=== PATIENT | male | born 1950 | race Caucasian/White ===

== ENCOUNTER 2022-08-20 20:50 | Emergency (ER) | payer MEDICARE ==
[~2022-08-20] VITALS: Ht 177.8 cm; Wt 102.3 kg
[~2022-08-20 20:50] MED LIST: DICL75TA5 PO; DULO20CA18 PO; HYDR-4353 PO; LISI20TA28 PO; OMEP40CA21 PO; SIMV-342 PO
[2022-08-20] MEDS ORDERED: normal saline 1000ML IV soln IVB ONE (21:25)
[2022-08-20 22:01] LABS: BASOPHILS # (AUTO) 0.1 X10'3 (0-0.2); BASOPHILS % (AUTO) 0.5 % (0-1); EOSINOPHILS % (AUTO) 0.2 % (0-6); HEMATOCRIT 56.4 % (42.0-52.0); LYMPHOCYTES # (AUTO) 1.4 X10'3 (1.1-4.8); LYMPHOCYTES % (AUTO) 7.8 % (21-51); MEAN CORPUSCULAR HEMOGLOBIN 36.2 PG (27.0-31.0); MEAN CORPUSCULAR HGB CONC 34.2 g/dL (33.0-36.5); MEAN PLATELET VOLUME 6.4 FL (7.4-10.4); MONOCYTES # (AUTO) 0.9 X10'3 (0-0.9); MONOCYTES % (AUTO) 4.8 % (2-12); NEUTROPHILS % (AUTO) 86.7 % (42-75); PLATELET COUNT 223 X10'3 (140-440); RED BLOOD COUNT 5.32 X10'6 (4.70-6.10); WHITE BLOOD COUNT 18.4 X10'3 (4.5-11.0)
[2022-08-20 22:07] LABS: HEMOGLOBIN 19.3 g/dl (14.0-17.9)
[2022-08-20 22:13] LABS: ALANINE AMINOTRANSFERASE 70 U/L (12-78); ALBUMIN 3.5 G/DL (3.4-5.0); ALKALINE PHOSPHATASE 70 IU/L (46-116); ANION GAP 20 (8-16); ASPARTATE AMINO TRANSFERASE 92 U/L (10-37); BLOOD UREA NITROGEN 11 MG/DL (7-18); BUN/CREATININE RATIO 9.3 (5.4-32.0); CALCIUM 9.3 MG/DL (8.5-10.1); CHLORIDE 101 MMOL/L (99-107); CREATININE 1.18 MG/DL (0.60-1.10); GLUCOSE 168 MG/DL (70-104); POTASSIUM 3.8 MMOL/L (3.5-5.1); SODIUM 139 MMOL/L (135-145); TOTAL CARBON DIOXIDE 17.7 MMOL/L (24-32); TOTAL PROTEIN 7.1 G/DL (6.4-8.2); eGFR 61 ML/MIN
[2022-08-20 22:21] LABS: LIPASE 58 U/L (73-393); MAGNESIUM 1.8 MG/DL (1.5-2.4)
[2022-08-20] MEDS ORDERED: normal saline 1000ml 1,000 ML IV ONE ×2 (22:50)
[2022-08-20] MEDS ORDERED: ondansetron/PF 4mg/2ml inj IV ONE (22:50)
[2022-08-21] MEDS ORDERED: proCHLORperazine 10 MG/2 ml inj IV ONE (00:05)
[2022-08-21] MEDS ORDERED: famotidine/PF 10 mg/ml inj IV ONE (00:45)
[2022-08-21 01:05] LABS: CREATINE KINASE 61 U/L (39-308)
[2022-08-21 03:04] LABS: BASOPHILS % (AUTO) 0.3 % (0-1); EOSINOPHILS % (AUTO) 0 % (0-6); HEMATOCRIT 52.3 % (42.0-52.0); HEMOGLOBIN 17.6 g/dl (14.0-17.9); LYMPHOCYTES # (AUTO) 0.9 X10'3 (1.1-4.8); LYMPHOCYTES % (AUTO) 6.7 % (21-51); MEAN CORPUSCULAR HEMOGLOBIN 35.8 PG (27.0-31.0); MEAN CORPUSCULAR HGB CONC 33.6 g/dL (33.0-36.5); MEAN CORPUSCULAR VOLUME 106.6 FL (78-98); MEAN PLATELET VOLUME 6.8 FL (7.4-10.4); MONOCYTES # (AUTO) 0.6 X10'3 (0-0.9); MONOCYTES % (AUTO) 4.3 % (2-12); NEUTROPHILS # (AUTO) 11.8 X10'3 (1.8-7.7); NEUTROPHILS % (AUTO) 88.7 % (42-75); PLATELET COUNT 234 X10'3 (140-440); RED BLOOD COUNT 4.91 X10'6 (4.70-6.10); RED CELL DISTRIBUTION WIDTH 14.1 % (11.5-14.5); WHITE BLOOD COUNT 13.3 X10'3 (4.5-11.0)
[2022-08-21 03:15] LABS: ALANINE AMINOTRANSFERASE 67 U/L (12-78); ALBUMIN 3.4 G/DL (3.4-5.0); ALKALINE PHOSPHATASE 65 IU/L (46-116); ANION GAP 13 (8-16); ASPARTATE AMINO TRANSFERASE 81 U/L (10-37); BILIRUBIN,TOTAL 0.8 MG/DL (0.1-1.0); BLOOD UREA NITROGEN 13 MG/DL (7-18); BUN/CREATININE RATIO 10.2 (5.4-32.0); CALCIUM 8.6 MG/DL (8.5-10.1); CHLORIDE 101 MMOL/L (99-107); CREATININE 1.27 MG/DL (0.60-1.10); GLUCOSE 194 MG/DL (70-104); POTASSIUM 4.9 MMOL/L (3.5-5.1); SODIUM 138 MMOL/L (135-145); TOTAL CARBON DIOXIDE 23.9 MMOL/L (24-32); TOTAL PROTEIN 6.8 G/DL (6.4-8.2); eGFR 56 ML/MIN
[2022-08-21 03:20] LABS: ETHANOL < 0.010 GM/DL (0.0-0.010)
[2022-08-21] MEDS ORDERED: ONDA8TAB13 PO (03:49)
[2022-08-21 06:37] VITALS: BP 133/86
== END 2022-08-21 03:58 | disposition home or self-care (01) ==
LOC: ER 20:51
DX: K29.20 Alcoholic gastritis without bleeding (principal); R55 Syncope and collapse; Z79.899 Other long term (current) drug therapy
CPT/HCPCS: 36415; 70450; 71045; 74176; 80053; 80320; 82550; 83690; 83735; 83880; 84145; 84484; 85025; 93005; 96361; 96374; 96375; 99285; J0780; J2405; J3490; J7030

== ENCOUNTER 2023-06-20 15:20 | Emergency (ER) | payer MEDICARE ==
[~2023-06-20] VITALS: Ht 177.8 cm; Wt 97.7 kg
[~2023-06-20 15:20] MED LIST changes: +ONDA8TAB13 PO
[2023-06-20 15:21] VITALS: BP 118/73; PULSE 121; RESP 16; TEMP 98.6; O2SAT 98
[2023-06-20 15:56] LABS: BILIRUBIN,URINE MODERATE (Neg); CLARITY,URINE CLEAR (Clear); COLOR,URINE YELLOW (Yellow); GLUCOSE, URINE NEGATIVE (Neg); KETONES,URINE 40 mg/dl (Neg); LEUKOCYTE ESTERASE ,URINE NEGATIVE (Neg); NITRITES, URINE NEGATIVE (Neg); OCCULT BLOOD,URINE NEGATIVE (Neg); PROTEIN,URINE TRACE mg/dl (Neg)
[2023-06-20 16:05] LABS: UA COLLECTION TYPE CLN CATCH MIDSTREAM
[2023-06-20 16:06] LABS: BACTERIA,URINE FEW /HPF (Neg); RBC,URINE NONE SEEN /HPF (0-2); WBC,URINE 0-4 /HPF (0-4)
[2023-06-20 16:09] LABS: MUCUS STRANDS FEW /LPF (Neg); SQUAMOUS EPITHELIAL CELL,UR MANY /LPF (FEW); TRANSITIONAL EPI CELLS,URINE FEW /HPF
[2023-06-20 16:41] LABS: BASOPHILS % (AUTO) 0.3 % (0-1); EOSINOPHILS # (AUTO) 0.1 X10'3 (0-0.9); EOSINOPHILS % (AUTO) 0.6 % (0-6); HEMATOCRIT 40.8 % (42.0-52.0); HEMOGLOBIN 13.7 g/dl (14.0-17.9); LYMPHOCYTES # (AUTO) 1.4 X10'3 (1.1-4.8); MEAN CORPUSCULAR HEMOGLOBIN 34.9 PG (27.0-31.0); MEAN CORPUSCULAR HGB CONC 33.5 g/dL (33.0-36.5); MEAN CORPUSCULAR VOLUME 104.2 FL (78-98); MEAN PLATELET VOLUME 6.9 FL (7.4-10.4); MONOCYTES # (AUTO) 0.8 X10'3 (0-0.9); MONOCYTES % (AUTO) 7.5 % (2-12); NEUTROPHILS # (AUTO) 8.9 X10'3 (1.8-7.7); NEUTROPHILS % (AUTO) 79.6 % (42-75); PLATELET COUNT 230 X10'3 (140-440); RED BLOOD COUNT 3.91 X10'6 (4.70-6.10); RED CELL DISTRIBUTION WIDTH 15.2 % (11.5-14.5); WHITE BLOOD COUNT 11.2 X10'3 (4.5-11.0)
[2023-06-20 16:52] LABS: ALANINE AMINOTRANSFERASE 95 U/L (12-78); ALBUMIN 3.6 G/DL (3.4-5.0); ALBUMIN/GLOBULIN RATIO 0.8 (1.1-1.5); ALKALINE PHOSPHATASE 168 IU/L (46-116); ANION GAP 12 (8-16); ASPARTATE AMINO TRANSFERASE 252 U/L (10-37); BILIRUBIN,TOTAL 1.8 MG/DL (0.1-1.0); BLOOD UREA NITROGEN 18 MG/DL (7-18); BUN/CREATININE RATIO 13.4 (10.0-20.0); CHLORIDE 93 MMOL/L (99-107); CREATININE 1.34 MG/DL (0.60-1.10); GLUCOSE 145 MG/DL (70-104); LIPASE 83 U/L (73-393); POTASSIUM 3.4 MMOL/L (3.5-5.1); SODIUM 132 MMOL/L (135-145); TOTAL CARBON DIOXIDE 26.7 MMOL/L (24-32); TOTAL PROTEIN 8.3 G/DL (6.4-8.2); eCRCL 51 ML/MIN; eGFR 52 ML/MIN
[2023-06-20 16:57] LABS: CALCIUM 9.5 MG/DL (8.5-10.1)
== END 2023-06-20 18:35 | disposition left against medical advice (07) ==
LOC: ER 15:21
DX: M54.50 Low back pain, unspecified (principal); R50.9 Fever, unspecified; Z53.21 Procedure and treatment not carried out due to patient leaving prior to being seen by health care provider
CPT/HCPCS: 36415; 80053; 81001; 83690; 85025; 99281

== ENCOUNTER 2023-06-24 04:30 | Inpatient (IN) | payer MEDICARE ==
[~2023-06-24] VITALS: Ht 177.8 cm; Wt 101.8 kg
[2023-06-24 05:46] LABS: BASOPHILS % (AUTO) 0.3 % (0-1); EOSINOPHILS % (AUTO) 0.2 % (0-6); HEMATOCRIT 39.5 % (42.0-52.0); HEMOGLOBIN 13.5 g/dl (14.0-17.9); LYMPHOCYTES # (AUTO) 0.4 X10'3 (1.1-4.8); LYMPHOCYTES % (AUTO) 3.7 % (21-51); MEAN CORPUSCULAR HEMOGLOBIN 35.1 PG (27.0-31.0); MEAN CORPUSCULAR HGB CONC 34.3 g/dL (33.0-36.5); MEAN CORPUSCULAR VOLUME 102.3 FL (78-98); MEAN PLATELET VOLUME 6.4 FL (7.4-10.4); MONOCYTES # (AUTO) 0.6 X10'3 (0-0.9); MONOCYTES % (AUTO) 5.4 % (2-12); NEUTROPHILS # (AUTO) 9.6 X10'3 (1.8-7.7); NEUTROPHILS % (AUTO) 90.4 % (42-75); PLATELET COUNT 215 X10'3 (140-440); RED BLOOD COUNT 3.86 X10'6 (4.70-6.10); RED CELL DISTRIBUTION WIDTH 14.3 % (11.5-14.5); WHITE BLOOD COUNT 10.6 X10'3 (4.5-11.0)
[2023-06-24 06:05] LABS: ALANINE AMINOTRANSFERASE 63 U/L (12-78); ALBUMIN 3.1 G/DL (3.4-5.0); ALBUMIN/GLOBULIN RATIO 0.7 (1.1-1.5); ALKALINE PHOSPHATASE 137 IU/L (46-116); ANION GAP 14 (8-16); ASPARTATE AMINO TRANSFERASE 104 U/L (10-37); BLOOD UREA NITROGEN 16 MG/DL (7-18); BUN/CREATININE RATIO 15.1 (10.0-20.0); CALCIUM 9.6 MG/DL (8.5-10.1); CHLORIDE 94 MMOL/L (99-107); CREATININE 1.06 MG/DL (0.60-1.10); GLUCOSE 225 MG/DL (70-104); SODIUM 133 MMOL/L (135-145); TOTAL CARBON DIOXIDE 25.4 MMOL/L (24-32); TOTAL PROTEIN 7.7 G/DL (6.4-8.2); eCRCL 64 ML/MIN; eGFR 68 ML/MIN
[2023-06-24] MEDS ORDERED: normal saline 1000ML IV soln IVB ONE ×3 (06:15→06:25)
[2023-06-24] MEDS ORDERED: ondansetron/PF 4mg/2ml inj IV ONE (06:20)
[2023-06-24] MEDS ORDERED: CefTRIAXone 2gm/D5W 50ml BAG 50 ML IV ONE (06:20)
[2023-06-24] MEDS ORDERED: morphine 4 MG/ML inj SYRINge IV ONE (06:20)
[2023-06-24] MEDS ORDERED: potassium Cl 40MEQ/1/2NS 520ml 520 ML IV ONE (06:25)
[2023-06-24] MEDS ORDERED: acetaminophen 1,000mg/100ml IV 100 ML IV STA (07:12)
[2023-06-24 07:32] LABS: MAGNESIUM 1.6 MG/DL (1.5-2.4)
[2023-06-24 08:57] LABS: BILIRUBIN,URINE MODERATE (Neg); CLARITY,URINE CLOUDY (Clear); GLUCOSE, URINE 100 mg/dl (Neg); KETONES,URINE 40 mg/dl (Neg); LEUKOCYTE ESTERASE ,URINE TRACE (Neg); OCCULT BLOOD,URINE LARGE (Neg); PH,URINE 6.5 (4.8-8.0); PROTEIN,URINE 100 mg/dl (Neg)
[2023-06-24 09:09] LABS: UA COLLECTION TYPE CLN CATCH MIDSTREAM
[2023-06-24 09:14] LABS: COLOR,URINE AMBER (Yellow); NITRITES, URINE NEGATIVE (Neg)
[2023-06-24 09:28] LABS: BACTERIA,URINE FEW /HPF (Neg); RBC,URINE TNTC /HPF (0-2); SQUAMOUS EPITHELIAL CELL,UR FEW /LPF (FEW)
[2023-06-24 09:29] LABS: HYALINE CASTS 0-3 /LPF (NEGATIVE); MUCUS STRANDS MODERATE /LPF (Neg)
--- NOTE | 2023-06-24 09:32 | NUR ---
Per primary RN Scarlet Montiel, patient accidentally discontinued IV himself. New IV placed, patient tolerated well.
[2023-06-24 10:00] LABS: PLATELET ESTIMATE NORMAL; TOTAL CELLS COUNTED 100
[2023-06-24 10:01] LABS: TOXIC GRANULATION 1+
[2023-06-24] MEDS ORDERED: potassium Cl 20 mEq SR tablet PO PRN (13:00)
[2023-06-24] MEDS ORDERED: magnesium 2GM in 50ml NS 50 ML IV PRN (13:00)
[2023-06-24] MEDS ORDERED: HYDROmorphone inj. 0.5 MG/0.5 ML DISP.SYRIN IV PRN (13:00)
[2023-06-24] MEDS ORDERED: LORazepam 2 mg/ml vial IV PRN ×2 (13:00)
[2023-06-24] MEDS ORDERED: HYDROmorphone/PF 0.2 MG/ML SYRINGE IV PRN (13:00)
[2023-06-24] MEDS ORDERED: DEXTROSE 15 GM of carb/4 tabs (each vial/BOTTLE has 4 tablets) PO PRN ×2 (13:00)
[2023-06-24] MEDS ORDERED: insulin Lispro (HumaLOG) vial - multi-dose SQ SCH (13:00)
[2023-06-24] MEDS ORDERED: dextrose 50%-water 50ml dispensing syringe IV PRN ×2 (13:00)
[2023-06-24] MEDS ORDERED: magnesium 4gm in 100ml NS 100 ML IV PRN (13:00)
[2023-06-24] MEDS ORDERED: vancomycin inj 1,000 MG in normal saline 250ml IV soln 250 ML IV SCH (13:00)
[2023-06-24] MEDS ORDERED: ondansetron/PF 4mg/2ml inj IV PRN (13:00)
[2023-06-24] MEDS ORDERED: MESSAGE TO PHARMACY PO ONE (13:00)
[2023-06-24] MEDS ORDERED: mag hydrox/Alum hydrox/simeth 30ml oral suspension PO PRN (13:00)
[2023-06-24] MEDS ORDERED: potassium Cl 40MEQ/1/2NS 520ml 520 ML IV PRN (13:00)
[2023-06-24] MEDS ORDERED: glucagon, human recombinant 1mg kit SUBCUT PRN (13:00)
[2023-06-24] MEDS ORDERED: acetaminophen 325mg tablet PO PRN (13:00)
[2023-06-24] MEDS ORDERED: vancomycin/NS 1 GM ADD-VANTAGE 250 ML IV SCH (14:00)
[2023-06-24] MEDS ORDERED: GADOTERATE MEGLUMINE 7.5 MMOL/15 ML VIAL IV ONE (14:30)
[2023-06-24] MEDS ORDERED: HYDR-3972 PO (15:14)
[2023-06-24] MEDS ORDERED: SIMV-42 PO (15:14)
[2023-06-24] MEDS ORDERED: OMEP40CA21 PO (15:14)
[2023-06-24] MEDS ORDERED: LISI20TA28 PO (15:14)
[2023-06-24] MEDS: cefepime 1GM/NS ADD-VANTAGE 100 ML IV SCH ×2 (16:02→23:58)
[2023-06-24] MEDS: vancomycin/NS 1 GM ADD-VANTAGE 250 ML IV SCH (16:04)
[2023-06-24] MEDS ORDERED: HYDROcodone/acetaminophen 10/325mg tab PO PRN (16:05)
--- NOTE | 2023-06-24 16:56 | NUR ---
Reprt called to JASMYN Martinez on Ortho. Will transfer patient upstairs on hospital bed.
[2023-06-24 18:00] VITALS: BP 164/95; PULSE 100; RESP 20; TEMP 97.6; O2SAT 100
--- NOTE | 2023-06-24 18:38 | NUR ---
Patient in room ORTHO 4009. I have received report from Yola Hedrick and had the opportunity to ask questions and assume patient care.
[2023-06-24 19:11] VITALS: RESP 20; O2SAT 100
[2023-06-24] MEDS: potassium Cl 20 mEq SR tablet PO PRN (19:11)
[2023-06-24] MEDS: docusate sod 100mg capsule PO SCH (20:00)
[2023-06-24] MEDS: enoxaparin 40mg/0.4ml syringe SQ SCH (20:00)
[2023-06-24] MEDS: K and/or MAG REPLACEMENT MC SCH (20:00)
[2023-06-24] MEDS: insulin glargine (Lantus) pen - multi-dose SQ SCH (21:00)
[2023-06-24] MEDS ORDERED: atorvastatin 10mg tablet PO SCH (21:00)
--- NOTE | 2023-06-24 21:10 | NUR ---
Called nighttime hospitalist, advised of positive blood cultures. No new orders received. Patient on two abx.
[2023-06-24] MEDS: thiamine 100mg tablet PO SCH (21:15)
[2023-06-24 22:00] VITALS: BP 140/101; PULSE 115; RESP 22; TEMP 98.7; O2SAT 95
[2023-06-25] VITALS (8 sets, daily range): BP systolic 154–165; BP diastolic 72–93; PULSE 76–98; RESP 15–18; TEMP 98.4–99.1; O2SAT 94–99
[2023-06-25] MEDS: vancomycin/NS 1 GM ADD-VANTAGE 250 ML IV SCH ×2 (01:53→16:55)
[2023-06-25 06:18] LABS: BASOPHILS % (AUTO) 0.4 % (0-1); EOSINOPHILS % (AUTO) 0 % (0-6); HEMATOCRIT 36.5 % (42.0-52.0); HEMOGLOBIN 12.3 g/dl (14.0-17.9); LYMPHOCYTES # (AUTO) 0.7 X10'3 (1.1-4.8); LYMPHOCYTES % (AUTO) 6.8 % (21-51); MEAN CORPUSCULAR HEMOGLOBIN 34.8 PG (27.0-31.0); MEAN CORPUSCULAR HGB CONC 33.8 g/dL (33.0-36.5); MEAN PLATELET VOLUME 6.4 FL (7.4-10.4); MONOCYTES # (AUTO) 1.1 X10'3 (0-0.9); MONOCYTES % (AUTO) 10.4 % (2-12); NEUTROPHILS # (AUTO) 8.8 X10'3 (1.8-7.7); NEUTROPHILS % (AUTO) 82.4 % (42-75); PLATELET COUNT 204 X10'3 (140-440); RED BLOOD COUNT 3.54 X10'6 (4.70-6.10); RED CELL DISTRIBUTION WIDTH 14.3 % (11.5-14.5); WHITE BLOOD COUNT 10.7 X10'3 (4.5-11.0)
--- NOTE | 2023-06-25 06:19 | NUR ---
Problems reprioritized. Patient report given, questions answered & plan of care reviewed with Genie Rome
[2023-06-25 06:24] LABS: PROTHROMBIN TIME 11.1 SECONDS (9.0-12.0)
--- NOTE | 2023-06-25 06:27 | NUR ---
Patient in room ORTHO 4009. I have received report from JASMYN Lennon and had the opportunity to ask questions and assume patient care.
[2023-06-25 06:41] LABS: ALANINE AMINOTRANSFERASE 116 U/L (12-78); ALBUMIN 2.8 G/DL (3.4-5.0); ALBUMIN/GLOBULIN RATIO 0.6 (1.1-1.5); ALKALINE PHOSPHATASE 179 IU/L (46-116); ANION GAP 10 (8-16); ASPARTATE AMINO TRANSFERASE 291 U/L (10-37); BILIRUBIN,TOTAL 0.8 MG/DL (0.1-1.0); BLOOD UREA NITROGEN 10 MG/DL (7-18); BUN/CREATININE RATIO 11.2 (10.0-20.0); CALCIUM 9.4 MG/DL (8.5-10.1); CHLORIDE 100 MMOL/L (99-107); CREATININE 0.89 MG/DL (0.60-1.10); GLUCOSE 154 MG/DL (70-104); LIPASE 54 U/L (73-393); MAGNESIUM 1.6 MG/DL (1.5-2.4); POTASSIUM 3.6 MMOL/L (3.5-5.1); SODIUM 135 MMOL/L (135-145); TOTAL CARBON DIOXIDE 24.9 MMOL/L (24-32); TOTAL PROTEIN 7.2 G/DL (6.4-8.2); eCRCL 76 ML/MIN; eGFR 84 ML/MIN
[2023-06-25 06:44] LABS: PHOSPHORUS 0.9 MG/DL (2.3-4.5)
[2023-06-25] MEDS ORDERED: Neutra Phos packet PO PRN ×2 (06:55→07:00)
[2023-06-25] MEDS ORDERED: sodium phosphate inj. 30 MMOL in dextrose 5%-water 250 ML IV PRN ×2 (06:55→07:00)
[2023-06-25] MEDS ORDERED: sodium phosphate inj. 15 MMOL in dextrose 5%-water 250 ML IV PRN ×2 (06:55→07:00)
--- NOTE | 2023-06-25 07:10 | NUR ---
Notified Dr. Armenta of critcial phosphate 0.9 and he TORB phosphate replacement. I notified pharmacy to bring up replacement and I was told that this order is only for critical care and had to cancel the order. I tried placing a new order to see if that was correct and pharmacy stated that it was still critical care and would need to be placed as a one time only order. I will contact provider again.
--- NOTE | 2023-06-25 07:17 | NUR ---
MESSAGE: ayad-geraldo/neuro- 5199 Pt. RM 2089C- Chandra Cross- Critical phosphate 0.9- Please call diana, thank you
[2023-06-25] MEDS: cefepime 1GM/NS ADD-VANTAGE 100 ML IV SCH ×2 (07:28→17:10)
[2023-06-25] MEDS: docusate sod 100mg capsule PO SCH ×2 (07:28→20:34)
[2023-06-25] MEDS: thiamine 100mg tablet PO SCH ×2 (07:28→20:35)
[2023-06-25] MEDS: pantoprazole 40mg Tablet.DR PO SCH (07:28)
[2023-06-25] MEDS: lisinopril 20mg tablet PO SCH (07:29)
[2023-06-25] MEDS ORDERED: potassium phosphate inj 30 MMOL in normal saline 250ml IV soln 250 ML IV ONE (07:30)
[2023-06-25] MEDS: K and/or MAG REPLACEMENT MC SCH ×2 (07:53→20:24)
--- NOTE | 2023-06-25 07:57 | NUR ---
Dr. Guthrie place once only order for phosphate replacement, I tried to call pharmacy, but there was no answer. Will call again and am waiting for replacement from pharmacy at this time.
--- NOTE | 2023-06-25 08:33 | NUR ---
On phone with pharmacy, asked for it to be picked up. Will go to pharmacy now.
[2023-06-25] MEDS ORDERED: oxyCODONE IR 5mg (immed. release) tablet PO PRN (10:00)
--- NOTE | 2023-06-25 10:15 | NUR ---
Patient in room ORTHO 4009. I have received report from JASMYN Novak and had the opportunity to ask questions and assume patient care.
[2023-06-25] MEDS: oxyCODONE IR 5mg (immed. release) tablet PO PRN (11:07)
--- NOTE | 2023-06-25 13:43 | NUR ---
MESSAGE: ayad-geraldo/neuro- 5199 Pt Rm 4009C- Chandra Cross- He has very loose, black, stool, do you want a C.diff sample
--- NOTE | 2023-06-25 14:00 | NUR ---
pt keeps getting up from bed and disconnecting by himself his IV to go to the bathroom. He is extremely impulsive and seems to have some confusion. The phosphate replacement is not compatible/ no data is collected for running with vancomyocin. I have tried 2 attempts to start another IV and was not successful. I will get another nurse to get an IV in patient. Vancomyocin and Cefepime is running behind schedule because of only one IV access.
--- NOTE | 2023-06-25 15:20 | NUR ---
last note about receiving report for sherrie is a mistake. It was meant for another patient of [facility].
[2023-06-25] MEDS ORDERED: hydrALAZINE 20mg/ml inj. IV PRN (19:20)
--- NOTE | 2023-06-25 19:28 | NUR ---
Problems reprioritized. Patient report given, questions answered & plan of care reviewed with JASMYN Healy.
[2023-06-25] MEDS: enoxaparin 40mg/0.4ml syringe SQ SCH (20:00)
[2023-06-25] MEDS: insulin glargine (Lantus) pen - multi-dose SQ SCH (21:00)
--- NOTE | 2023-06-25 22:30 | NUR ---
RECEIVED REPORT FROM JASMYN KULKARNI PT RESTING IN BED.
[2023-06-25 23:03] LABS: OCCULT BLOOD STOOL POSITIVE (Neg)
--- NOTE | 2023-06-25 23:24 | NUR ---
Student documentation: I have reviewed interventions, assessments performed and documented by Violette NUNES [facility].
--- NOTE | 2023-06-25 23:25 | NUR ---
Student Medication Administration: For this medication-pass time frame, all medication were reviewed, dispensed, administered and documented per hospital policy by Violette NUNES [facility].
[2023-06-26] MEDS: cefepime 1GM/NS ADD-VANTAGE 100 ML IV SCH ×3 (00:24→16:26)
[2023-06-26] MEDS ORDERED: VANCOMYCIN LEVEL IV ONE (01:30)
[2023-06-26] MEDS: vancomycin/NS 1 GM ADD-VANTAGE 250 ML IV SCH (01:46)
[2023-06-26 01:50] LABS: BASOPHILS % (AUTO) 0.2 % (0-1); EOSINOPHILS % (AUTO) 0.1 % (0-6); HEMATOCRIT 40.1 % (42.0-52.0); HEMOGLOBIN 13.5 g/dl (14.0-17.9); LYMPHOCYTES % (AUTO) 10.5 % (21-51); MEAN CORPUSCULAR HEMOGLOBIN 34.7 PG (27.0-31.0); MEAN CORPUSCULAR HGB CONC 33.7 g/dL (33.0-36.5); MEAN PLATELET VOLUME 6.6 FL (7.4-10.4); MONOCYTES # (AUTO) 1.2 X10'3 (0-0.9); MONOCYTES % (AUTO) 12.9 % (2-12); NEUTROPHILS # (AUTO) 7.1 X10'3 (1.8-7.7); NEUTROPHILS % (AUTO) 76.3 % (42-75); PLATELET COUNT 199 X10'3 (140-440); RED BLOOD COUNT 3.89 X10'6 (4.70-6.10); RED CELL DISTRIBUTION WIDTH 14.5 % (11.5-14.5); WHITE BLOOD COUNT 9.3 X10'3 (4.5-11.0)
[2023-06-26 02:06] LABS: ALANINE AMINOTRANSFERASE 156 U/L (12-78); ALBUMIN/GLOBULIN RATIO 0.6 (1.1-1.5); ALKALINE PHOSPHATASE 208 IU/L (46-116); ANION GAP 12 (8-16); ASPARTATE AMINO TRANSFERASE 337 U/L (10-37); BILIRUBIN,TOTAL 0.8 MG/DL (0.1-1.0); BLOOD UREA NITROGEN 12 MG/DL (7-18); BUN/CREATININE RATIO 14.3 (10.0-20.0); CHLORIDE 101 MMOL/L (99-107); CREATININE 0.84 MG/DL (0.60-1.10); GLUCOSE 117 MG/DL (70-104); LIPASE 88 U/L (73-393); MAGNESIUM 1.8 MG/DL (1.5-2.4); PHOSPHORUS 2.4 MG/DL (2.3-4.5); SODIUM 138 MMOL/L (135-145); TOTAL CARBON DIOXIDE 25.4 MMOL/L (24-32); TOTAL PROTEIN 7.8 G/DL (6.4-8.2); VANCOMYCIN,TROUGH 10.7 ug/mL (10.0-20.0); eCRCL 81 ML/MIN; eGFR 90 ML/MIN
[2023-06-26] MEDS: potassium Cl 20 mEq SR tablet PO PRN ×2 (03:15→15:55)
[2023-06-26] MEDS: oxyCODONE IR 5mg (immed. release) tablet PO PRN ×2 (05:16→20:07)
[2023-06-26 06:00] VITALS: BP 159/85; PULSE 77; RESP 16; TEMP 98; O2SAT 98
--- NOTE | 2023-06-26 06:14 | NUR ---
Problems reprioritized. Patient report given, questions answered & plan of care reviewed with JASMYN OSBORNE.
[2023-06-26 06:33] LABS: INR 1.1 INR; PROTHROMBIN TIME 11.3 SECONDS (9.0-12.0)
[2023-06-26 07:35] VITALS: RESP 18
[2023-06-26] MEDS: thiamine 100mg tablet PO SCH ×2 (07:57→20:04)
[2023-06-26] MEDS: pantoprazole 40mg Tablet.DR PO SCH (07:57)
[2023-06-26] MEDS: lisinopril 20mg tablet PO SCH (07:58)
[2023-06-26] MEDS: K and/or MAG REPLACEMENT MC SCH ×2 (08:00→20:00)
[2023-06-26] MEDS: docusate sod 100mg capsule PO SCH ×2 (08:00→20:00)
[2023-06-26 10:00] VITALS: BP 152/88; PULSE 72; RESP 18; TEMP 97.7; O2SAT 98
[2023-06-26] MEDS: diphenhydrAMINE 2%/zinc acetate cream TP SCH ×2 (14:00→21:00)
[2023-06-26] MEDS: VANCOmycin 1250MG/NS 250ml Bag 250 ML IV SCH (16:26)
[2023-06-26 18:00] VITALS: BP 160/94; PULSE 75; RESP 18; TEMP 97.8; O2SAT 97
--- NOTE | 2023-06-26 18:24 | NUR ---
Report to Lindsey VINES
[2023-06-26] MEDS: enoxaparin 40mg/0.4ml syringe SQ SCH (20:00)
[2023-06-26] MEDS: mineral oil/petrolatum, white cream 60gm jar TP SCH (20:00)
[2023-06-26 20:35] LABS: HEMOGLOBIN A1C 6.2 % (4.5-6.2)
[2023-06-26] MEDS: insulin glargine (Lantus) pen - multi-dose SQ SCH (21:00)
[2023-06-26 22:29] VITALS: BP 154/76; PULSE 82; RESP 18; TEMP 98.1; O2SAT 99
[2023-06-27] MEDS: cefepime 1GM/NS ADD-VANTAGE 100 ML IV SCH ×3 (00:38→16:02)
[2023-06-27] MEDS: oxyCODONE IR 5mg (immed. release) tablet PO PRN ×4 (02:08→21:17)
[2023-06-27] MEDS: VANCOmycin 1250MG/NS 250ml Bag 250 ML IV SCH ×2 (03:06→13:28)
[2023-06-27 06:00] VITALS: BP 166/92; PULSE 64; RESP 18; TEMP 97.3; O2SAT 100
--- NOTE | 2023-06-27 06:46 | NUR ---
Problems reprioritized. Patient report given, questions answered & plan of care reviewed with JASMYN Angelo.
[2023-06-27 07:02] LABS: BASOPHILS % (AUTO) 0.2 % (0-1); EOSINOPHILS # (AUTO) 0.1 X10'3 (0-0.9); EOSINOPHILS % (AUTO) 0.8 % (0-6); HEMOGLOBIN 12.2 g/dl (14.0-17.9); LYMPHOCYTES % (AUTO) 14.7 % (21-51); MEAN CORPUSCULAR HEMOGLOBIN 34.8 PG (27.0-31.0); MEAN CORPUSCULAR HGB CONC 33.9 g/dL (33.0-36.5); MEAN CORPUSCULAR VOLUME 102.8 FL (78-98); MEAN PLATELET VOLUME 6.7 FL (7.4-10.4); MONOCYTES % (AUTO) 14.5 % (2-12); NEUTROPHILS # (AUTO) 4.7 X10'3 (1.8-7.7); NEUTROPHILS % (AUTO) 69.8 % (42-75); PLATELET COUNT 196 X10'3 (140-440); RED CELL DISTRIBUTION WIDTH 14.7 % (11.5-14.5); WHITE BLOOD COUNT 6.7 X10'3 (4.5-11.0)
[2023-06-27 07:13] LABS: INR 1.1 INR; PROTHROMBIN TIME 11.4 SECONDS (9.0-12.0)
[2023-06-27 07:24] LABS: ALANINE AMINOTRANSFERASE 258 U/L (12-78); ALBUMIN 2.7 G/DL (3.4-5.0); ALBUMIN/GLOBULIN RATIO 0.6 (1.1-1.5); ALKALINE PHOSPHATASE 274 IU/L (46-116); ANION GAP 9 (8-16); ASPARTATE AMINO TRANSFERASE 494 U/L (10-37); BILIRUBIN,TOTAL 1.5 MG/DL (0.1-1.0); BLOOD UREA NITROGEN 12 MG/DL (7-18); BUN/CREATININE RATIO 15.6 (10.0-20.0); CALCIUM 9.4 MG/DL (8.5-10.1); CHLORIDE 100 MMOL/L (99-107); CREATININE 0.77 MG/DL (0.60-1.10); GLUCOSE 106 MG/DL (70-104); LIPASE 62 U/L (73-393); MAGNESIUM 1.8 MG/DL (1.5-2.4); PHOSPHORUS 2.9 MG/DL (2.3-4.5); POTASSIUM 3.4 MMOL/L (3.5-5.1); SODIUM 135 MMOL/L (135-145); TOTAL CARBON DIOXIDE 26.2 MMOL/L (24-32); TOTAL PROTEIN 6.9 G/DL (6.4-8.2); eCRCL 88 ML/MIN; eGFR > 90 ML/MIN
[2023-06-27 08:00] VITALS: RESP 18; O2SAT 100
[2023-06-27] MEDS: K and/or MAG REPLACEMENT MC SCH ×2 (08:00→20:00)
[2023-06-27] MEDS: docusate sod 100mg capsule PO SCH ×2 (08:00→20:00)
[2023-06-27] MEDS: lisinopril 20mg tablet PO SCH (08:09)
[2023-06-27] MEDS: thiamine 100mg tablet PO SCH ×2 (08:10→21:04)
[2023-06-27] MEDS: pantoprazole 40mg Tablet.DR PO SCH (08:10)
[2023-06-27] MEDS: mineral oil/petrolatum, white cream 60gm jar TP SCH ×2 (08:10→20:00)
[2023-06-27] MEDS: diphenhydrAMINE 2%/zinc acetate cream TP SCH ×3 (08:11→21:07)
[2023-06-27] MEDS ORDERED: PERFLUTREN PROTEIN-A MICROSPHR (Optison) 0.22 MG/ML 3ML VIAL IV ONE (08:15)
[2023-06-27 08:37] LABS: PLATELET ESTIMATE NORMAL; TOTAL CELLS COUNTED 100
[2023-06-27 08:39] LABS: HYPERSEGMENTED NEUTROPHILS FEW
[2023-06-27 10:00] VITALS: BP 167/96; PULSE 67; RESP 18; TEMP 98.2; O2SAT 98
[2023-06-27] MEDS: normal saline 1000ml 1,000 ML IV SCH ×2 (13:17→23:00)
[2023-06-27] MEDS ORDERED: magnesium 2GM in 50ml NS 50 ML IV PRN (15:15)
[2023-06-27] MEDS ORDERED: potassium Cl 40MEQ/1/2NS 520ml 520 ML IV PRN (15:15)
[2023-06-27] MEDS ORDERED: potassium Cl 20 mEq SR tablet PO PRN ×2 (15:15)
[2023-06-27] MEDS ORDERED: magnesium 4gm in 100ml NS 100 ML IV PRN (15:15)
[2023-06-27 18:00] VITALS: BP 171/94; PULSE 71; RESP 16; TEMP 97.9; O2SAT 99
[2023-06-27] MEDS: enoxaparin 40mg/0.4ml syringe SQ SCH (20:00)
[2023-06-27] MEDS: insulin glargine (Lantus) pen - multi-dose SQ SCH (21:00)
[2023-06-27 22:00] VITALS: BP 157/92; PULSE 89; RESP 16; TEMP 97.2; O2SAT 100
[2023-06-28] MEDS ORDERED: VANCOMYCIN LEVEL IV ONE (01:30)
[2023-06-28] MEDS: cefepime 1GM/NS ADD-VANTAGE 100 ML IV SCH ×2 (01:50→07:39)
[2023-06-28 01:58] LABS: BASOPHILS % (AUTO) 0.2 % (0-1); EOSINOPHILS % (AUTO) 0.4 % (0-6); HEMOGLOBIN 12.4 g/dl (14.0-17.9); LYMPHOCYTES # (AUTO) 1.1 X10'3 (1.1-4.8); LYMPHOCYTES % (AUTO) 11.1 % (21-51); MEAN CORPUSCULAR HGB CONC 34.4 g/dL (33.0-36.5); MEAN CORPUSCULAR VOLUME 101.6 FL (78-98); MONOCYTES # (AUTO) 1.4 X10'3 (0-0.9); MONOCYTES % (AUTO) 13.4 % (2-12); NEUTROPHILS # (AUTO) 7.6 X10'3 (1.8-7.7); NEUTROPHILS % (AUTO) 74.9 % (42-75); PLATELET COUNT 248 X10'3 (140-440); RED BLOOD COUNT 3.55 X10'6 (4.70-6.10); RED CELL DISTRIBUTION WIDTH 14.5 % (11.5-14.5); WHITE BLOOD COUNT 10.1 X10'3 (4.5-11.0)
[2023-06-28 02:00] LABS: INR 1.1 INR; PROTHROMBIN TIME 11.3 SECONDS (9.0-12.0)
[2023-06-28 02:04] LABS: ALANINE AMINOTRANSFERASE 178 U/L (12-78); ALBUMIN 2.6 G/DL (3.4-5.0); ALBUMIN/GLOBULIN RATIO 0.6 (1.1-1.5); ALKALINE PHOSPHATASE 239 IU/L (46-116); ANION GAP 7 (8-16); ASPARTATE AMINO TRANSFERASE 215 U/L (10-37); BILIRUBIN,TOTAL 1.1 MG/DL (0.1-1.0); BLOOD UREA NITROGEN 10 MG/DL (7-18); BUN/CREATININE RATIO 11.6 (10.0-20.0); CALCIUM 9.2 MG/DL (8.5-10.1); CHLORIDE 100 MMOL/L (99-107); CREATININE 0.86 MG/DL (0.60-1.10); GLUCOSE 128 MG/DL (70-104); LIPASE 65 U/L (73-393); MAGNESIUM 1.8 MG/DL (1.5-2.4); PHOSPHORUS 3.3 MG/DL (2.3-4.5); POTASSIUM 3.4 MMOL/L (3.5-5.1); SODIUM 135 MMOL/L (135-145); TOTAL CARBON DIOXIDE 27.8 MMOL/L (24-32); TOTAL PROTEIN 6.9 G/DL (6.4-8.2); VANCOMYCIN,TROUGH 16.3 ug/mL (10.0-20.0); eCRCL 79 ML/MIN; eGFR 87 ML/MIN
[2023-06-28] MEDS: VANCOmycin 1250MG/NS 250ml Bag 250 ML IV SCH (02:43)
[2023-06-28 03:23] LABS: TOTAL CELLS COUNTED 100
[2023-06-28 03:24] LABS: PLATELET ESTIMATE NORMAL
[2023-06-28] MEDS: oxyCODONE IR 5mg (immed. release) tablet PO PRN (04:30)
[2023-06-28 06:00] VITALS: BP 159/94; PULSE 54; RESP 17; TEMP 98.6; O2SAT 95
--- NOTE | 2023-06-28 06:53 | NUR ---
Patient in room ORTHO 4009. I have received report from Lindsey and had the opportunity to ask questions and assume patient care.
--- NOTE | 2023-06-28 06:53 | NUR ---
Problems reprioritized. Patient report given, questions answered & plan of care reviewed with JASMYN AN.
[2023-06-28] MEDS: K and/or MAG REPLACEMENT MC SCH (07:05)
[2023-06-28] MEDS: pantoprazole 40mg Tablet.DR PO SCH (07:39)
[2023-06-28] MEDS: docusate sod 100mg capsule PO SCH (07:39)
[2023-06-28] MEDS: thiamine 100mg tablet PO SCH (07:40)
[2023-06-28] MEDS: lisinopril 20mg tablet PO SCH (07:40)
[2023-06-28] MEDS: mineral oil/petrolatum, white cream 60gm jar TP SCH (07:40)
[2023-06-28] MEDS: diphenhydrAMINE 2%/zinc acetate cream TP SCH (07:40)
[2023-06-28] MEDS ORDERED: levoFLOXACIN-Levaquin 500mg/D5 100 ML IV SCH (08:05)
[2023-06-28 10:00] VITALS: BP 152/92; PULSE 88; RESP 15; TEMP 98.3; O2SAT 100
[2023-06-28] MEDS ORDERED: oxyCODONE IR 5mg (immed. release) tablet PO PRN (10:05)
[2023-06-28] MEDS ORDERED: TOP100T PO (12:02)
[2023-06-28] MEDS ORDERED: [UNRECOGNIZED DRUG - CODE] PO (12:02)
[2023-06-28] MEDS ORDERED: PANT-47 PO (12:03)
[2023-06-28] MEDS ORDERED: MULT-1085 PO (12:06)
[2023-06-28] MEDS ORDERED: THIA100T66 PO (12:06)
[2023-06-28] MEDS ORDERED: FOLI1TAB27 PO (12:06)
[2023-06-28] MEDS ORDERED: ampicillin inj 2 GM in normal saline 100ml IV soln 100 ML IV SCH (14:00)
== END 2023-06-28 13:53 | disposition home or self-care (01) | DRG 871 ==
LOC: ER 04:31 → ED HOLD 13:12 → EDBEDREQ 16:07 → ORTHO 4S 17:15
PROVIDERS: ADMIT Family Medicine; ATTEND Family Medicine
DX: A40.9 Streptococcal sepsis, unspecified (principal); K72.00 Acute and subacute hepatic failure without coma; N30.90 Cystitis, unspecified without hematuria; K76.0 Fatty (change of) liver, not elsewhere classified; I10 Essential (primary) hypertension; G89.29 Other chronic pain; K21.9 Gastro-esophageal reflux disease without esophagitis; E87.6 Hypokalemia; E83.39 Other disorders of phosphorus metabolism; G56.02 Carpal tunnel syndrome, left upper limb; R31.9 Hematuria, unspecified; Z20.822 Contact with and (suspected) exposure to COVID-19; F10.20 Alcohol dependence, uncomplicated; E11.9 Type 2 diabetes mellitus without complications; M54.9 Dorsalgia, unspecified; Z96.652 Presence of left artificial knee joint; Z79.899 Other long term (current) drug therapy; Z86.73 Personal history of transient ischemic attack (TIA), and cerebral infarction without residual deficits; Z87.891 Personal history of nicotine dependence; Z82.0 Family history of epilepsy and other diseases of the nervous system; K29.20 Alcoholic gastritis without bleeding; K76.82 Hepatic encephalopathy
CPT/HCPCS: 36415; 71045; 72158; 74176; 80053; 80202; 81001; 82272; 82948; 83036; 83605; 83690; 83735; 84100; 84132; 84145; 84484; 85007; 85025; 85610; 85651; 86140; 87040; 87045; 87046; 87077; 87081; 87088; 87186; 87811; 89055; 93306; 96374; 97116; 97161; 97530; 99285; A9575; G0378; J0131; J0692; J0696; J1170; J1815; J2270; J2405; J3370; J3480; J3490; J7030; J7050